=== PATIENT | female | born 2000 | race Caucasian/White ===

== ENCOUNTER 2019-06-29 10:42 | Inpatient (IN) ==
[2019-06-29] MEDS: LACTATED RINGERS 1,000 ML IV SCH ×3 (10:53→22:03)
[2019-06-29 11:30] LABS: Apearance,Urine CLEAR (Clear); Bilirubin,Urine Negative (Negative); Blood, Urine Large mg/dL (Negative); Glucose,Urine (UA) Negative (Negative); Ketones,Urine Negative (Negative); Mucus,Urine Occasional /LPF (Occasional); Nitrite,Urine Negative (Negative); Protein,Urine 30 MG/DL; RBC,Urine 797 /HPF (0-4); Squamous Epithelial Cell,Urine Occasional /HPF (0-10); Urine Color Yellow (Yellow); Urine Specific Gravity 1.016 (1.001-1.035); Urine Urobilinogen < 2.0 EU/DL (0.2-1.0); WBC,Urine 3 /HPF (0-6)
[2019-06-29] MEDS ORDERED: MEPERIDINE 50 MG/1 ML VIAL IV ONE (11:42)
[2019-06-29] MEDS ORDERED: PROMETHAZINE 25 MG/1 ML VIAL IM ONE (11:43)
[2019-06-29] MEDS ORDERED: AMPICILLIN INJ 2,000 MG in SODIUM CHLORIDE 0.9% 100 ML IV ONE (11:43)
[2019-06-29] MEDS ORDERED: ACETAMINOPHEN 325 MG TABLET PO PRN (14:37)
[2019-06-29] MEDS ORDERED: MEPERIDINE 25 MG/1 ML VIAL IV ONE (14:44)
[2019-06-29] MEDS: PROMETHAZINE 25 MG/1 ML VIAL IM PRN ×2 (18:00→23:44)
[2019-06-29] MEDS: MEPERIDINE 50 MG/1 ML VIAL IV PRN ×2 (18:08→22:11)
[2019-06-29] MEDS: AMPICILLIN INJ 2,000 MG in SODIUM CHLORIDE 0.9% 100 ML IV SCH ×2 (18:16→23:44)
[2019-06-30] MEDS: AMPICILLIN INJ 2,000 MG in SODIUM CHLORIDE 0.9% 100 ML IV SCH ×3 (05:42→18:00)
[2019-06-30] MEDS: ONDANSETRON 4 MG/2 ML VIAL IV PRN ×2 (09:22→17:52)
[2019-06-30] MEDS: MEPERIDINE 50 MG/1 ML VIAL IV PRN ×3 (09:24→17:54)
[2019-06-30] MEDS: LACTATED RINGERS 1,000 ML IV SCH (09:30)
[2019-06-30] MEDS ORDERED: TAMSULOSIN 0.4 MG CAPSULE PO SCH (12:32)
[2019-06-30] MEDS: TAMSULOSIN 0.4 MG CAPSULE PO SCH (12:58)
[2019-06-30] MEDS: PROMETHAZINE 25 MG/1 ML VIAL IM PRN (20:05)
[2019-06-30] MEDS ORDERED: oxyCODONE/ACETAMINOPHEN 5-325 MG TABLET PO PRN (21:27)
[2019-06-30] MEDS: oxyCODONE/ACETAMINOPHEN 5-325 MG TABLET PO PRN (21:42)
[2019-07-01] MEDS: AMPICILLIN INJ 2,000 MG in SODIUM CHLORIDE 0.9% 100 ML IV SCH ×4 (00:32→17:43)
[2019-07-01] MEDS: oxyCODONE/ACETAMINOPHEN 5-325 MG TABLET PO PRN ×3 (04:16→17:46)
[2019-07-01 05:00] LABS: Calcium 8.9 MG/DL (8.5-10.1)
[2019-07-01] MEDS: LACTATED RINGERS 1,000 ML IV SCH ×3 (09:57→09:58)
[2019-07-01] MEDS: TAMSULOSIN 0.4 MG CAPSULE PO SCH (15:03)
[2019-07-01 15:42] VITALS: BP 111/62
== END 2019-07-01 19:05 | disposition home or self-care (01) | DRG 566 ==
LOC: N.LD 10:42 → N.LDOUT 10:42 → N.LD 10:44 → N.OB 14:24 → N.LD 14:24 → N.OB 16:10
PROVIDERS: ADMIT Obstetrics & Gynecology; ATTEND Obstetrics & Gynecology